=== PATIENT | female | born 1990 | race Caucasian/White ===

== ENCOUNTER 2020-10-14 01:20 | Inpatient (IN) ==
[2020-10-14] MEDS ORDERED: Isovue-370 500 ML BOTTLE IVP ONE ×2 (01:44→03:36)
[2020-10-14 01:49] LABS: Hemoglobin 11.8 g/dL (11.5-15.4); Immature Granulocytes % 0.3 % (0-4); Mean Platelet Volume 13.3 fL (9.4-12.4)
[2020-10-14 01:51] LABS: Basophils % 0.3 %; Eosinophils # 0.1 K/mcL (0.0-0.6); Eosinophils % 1.9 %; Hematocrit 37.2 % (35.3-44.9); Immature Platelets 15.4 % (1.1-6.1); Mean Corpuscular HGB Conc 31.7 g/dL (31.6-35.5); Mean Corpuscular Volume 81.9 fL (83.0-100.0); Monocytes # 0.5 K/mcL (0.0-1.3); Monocytes % 7.9 %; Platelet Count 198 K/mcL (140-400); Red Blood Count 4.54 M/mcL (3.82-4.97); Red Cell Distribution Width 13.2 % (11.5-14.5); Segmented Neutrophils % 59.6 %; White Blood Count 6.7 K/mcL (4.3-11.1)
[2020-10-14 01:57] LABS: INR 1.1; Prothrombin Time 13.1 Seconds (9.4-12.1)
[2020-10-14 02:05] LABS: Alanine Aminotransferase 303 Units/L (7-52); Albumin 4.3 g/dL (3.5-5.7); Albumin/Globulin Ratio 1.2 (1.1-2.2); Alkaline Phosphatase 171 Units/L (34-104); Aspartate Amino Transferase 402 Units/L (13-39); BUN/Creatinine Ratio 17 (6-26); Bilirubin,Direct 1.1 mg/dL (0.0-0.2); Bilirubin,Indirect 0.6 mg/dL (0.0-1.0); Bilirubin,Total 1.7 mg/dL (0.3-1.0); Blood Urea Nitrogen 12 mg/dL (6-20); Calcium 9.5 mg/dL (8.6-10.3); Carbon Dioxide 27 mEq/L (23-29); Chloride 104 mEq/L (98-107); Globulin 3.5 g/dL (2.4-3.5); Glucose 114 mg/dL (70-105); Lipase 18 Units/L (11-82); Osmolality,Calculated 289 (280-300); Potassium 3.7 mEq/L (3.5-5.1); Sodium 139 mEq/L (136-145); Total Protein 7.8 g/dL (6.4-8.9); Troponin I < 0.03 ng/mL (< 0.04); eGFR For African Americans > 60 (> 60); eGFR For Non-African Americans > 60 (> 60)
[2020-10-14] MEDS ORDERED: 0.9 % Sodium Chloride 1,000 ML IVC ONE (03:36)
[2020-10-14] MEDS ORDERED: Morphine Sulfate 2 MG/ML SYRINGE IVP ONE (03:47)
[2020-10-14] MEDS ORDERED: Famotidine 20 MG/2 ML VIAL IVP ONE (03:47)
[2020-10-14] MEDS ORDERED: Ondansetron 4 MG/2 ML VIAL IVP ONE (03:47)
[2020-10-14] MEDS ORDERED: Isovue-300 50ML VIAL ONE (10:01)
[2020-10-14] MEDS ORDERED: Bupivacaine 0.5%-Epi 1:200,000 50 ML VIAL ONE (10:01)
[2020-10-14] MEDS ORDERED: *HR* Propofol 200 MG/20 ML VIAL IVP ONE (10:17)
[2020-10-14] MEDS ORDERED: *HR* Midazolam HCl 2 MG/2 ML VIAL ONE (10:17)
[2020-10-14] MEDS ORDERED: *HR* FentaNYL (PF) 100 MCG/2 ML VIAL ONE (10:17)
[2020-10-14] MEDS ORDERED: Lidocaine HCL 4 ML Topical Solution (Laryng-O-Jet Kit Sterile Pak) TP ONE (10:18)
[2020-10-14] MEDS ORDERED: *HR* Succinylcholine 200 MG/10 ML VIAL IVP ONE (10:18)
[2020-10-14] MEDS ORDERED: Ondansetron 4 MG/2 ML VIAL ONE (10:18)
[2020-10-14] MEDS ORDERED: Lidocaine -MPF 2% 2 ML VIAL ONE (10:18)
[2020-10-14] MEDS ORDERED: *HR* Rocuronium Bromide 50 MG/5 ML VIAL ONE (10:18)
[2020-10-14] MEDS ORDERED: Ketorolac 30 MG/ML VIAL ONE (10:21)
[2020-10-14] MEDS ORDERED: Acetaminophen IV 1,000 MG/100 ML BAG IVPB ONE (10:24)
[2020-10-14] MEDS ORDERED: ceFAZolin 2,000 MG in Water for inj. (sterile) 20 ML IVP STA (10:40)
[2020-10-14] MEDS ORDERED: *HR* HYDROcodone/Acet 5/325 mg TABLET PO PRN (11:13)
[2020-10-14] MEDS ORDERED: *HR* HYDROmorphone PF 0.5 MG/0.5 ML SYRINGE IVP PRN (11:13)
[2020-10-14] MEDS ORDERED: Ringers Solution, Lactated 1,000 ML IVC SCH (11:15)
[2020-10-14] MEDS: *HR* Heparin 5,000 UNIT/ML VIAL SQ SCH ×3 (18:50→21:53)
[2020-10-14] MEDS: Acetaminophen IV 1,000 MG/100 ML BAG IVPB SCH ×2 (18:50→23:13)
[2020-10-14] MEDS: 0.9 % Sodium Chloride 1,000 ML IVC SCH (18:51)
[2020-10-14] MEDS: Ampicillin/Sulbactam 3,000 MG in 0.9 % Sodium Chloride Mini Bag 100 ML IVPB SCH ×2 (18:51→23:31)
[2020-10-14] MEDS: Ondansetron 4 MG/2 ML VIAL IVP PRN (23:14)
[2020-10-15] MEDS: *HR* Heparin 5,000 UNIT/ML VIAL SQ SCH ×3 (05:01→22:30)
[2020-10-15] MEDS: Acetaminophen IV 1,000 MG/100 ML BAG IVPB SCH ×4 (05:01→22:30)
[2020-10-15] MEDS: Ampicillin/Sulbactam 3,000 MG in 0.9 % Sodium Chloride Mini Bag 100 ML IVPB SCH ×4 (05:02→22:31)
[2020-10-15 05:04] LABS: Immature Granulocytes % 0.3 % (0-4); Red Cell Distribution Width 13.5 % (11.5-14.5)
[2020-10-15 05:06] LABS: Basophils % 0.3 %; Eosinophils # 0.2 K/mcL (0.0-0.6); Eosinophils % 3.5 %; Hematocrit 30.8 % (35.3-44.9); Hemoglobin 9.8 g/dL (11.5-15.4); Immature Platelets 15.4 % (1.1-6.1); Lymphocytes # 1.4 K/mcL (0.6-4.6); Lymphocytes % 22.9 %; Mean Corpuscular HGB Conc 31.8 g/dL (31.6-35.5); Mean Corpuscular Hemoglobin 26.6 pg (28.0-33.3); Mean Corpuscular Volume 83.7 fL (83.0-100.0); Mean Platelet Volume 13.8 fL (9.4-12.4); Monocytes # 0.5 K/mcL (0.0-1.3); Monocytes % 7.6 %; Neutrophils # 3.9 K/mcL (1.6-8.9); Platelet Count 145 K/mcL (140-400); Red Blood Count 3.68 M/mcL (3.82-4.97); Segmented Neutrophils % 65.4 %; White Blood Count 5.9 K/mcL (4.3-11.1)
[2020-10-15 05:12] LABS: INR 1.3; Prothrombin Time 14.6 Seconds (9.4-12.1)
[2020-10-15 05:22] LABS: Alanine Aminotransferase 283 Units/L (7-52); Albumin 3.5 g/dL (3.5-5.7); Albumin/Globulin Ratio 1.4 (1.1-2.2); Alkaline Phosphatase 180 Units/L (34-104); Aspartate Amino Transferase 199 Units/L (13-39); BUN/Creatinine Ratio 16 (6-26); Bilirubin,Total 2.4 mg/dL (0.3-1.0); Blood Urea Nitrogen 9 mg/dL (6-20); Calcium 8.5 mg/dL (8.6-10.3); Carbon Dioxide 25 mEq/L (23-29); Chloride 108 mEq/L (98-107); Globulin 2.5 g/dL (2.4-3.5); Glucose 92 mg/dL (70-105); Osmolality,Calculated 288 (280-300); Potassium 3.7 mEq/L (3.5-5.1); Sodium 140 mEq/L (136-145); eGFR For African Americans > 60 (> 60); eGFR For Non-African Americans > 60 (> 60)
[2020-10-15] MEDS: 0.9 % Sodium Chloride 1,000 ML IVC SCH ×3 (07:18→18:37)
[2020-10-15] MEDS: Ondansetron 4 MG/2 ML VIAL IVP PRN ×2 (09:24→20:16)
[2020-10-15] MEDS ORDERED: *HR* HYDROmorphone (PF) 1 MG/ML SYRINGE IVP PRN (09:43)
[2020-10-15] MEDS ORDERED: *HR* Midazolam HCl 2 MG/2 ML VIAL ONE (11:55)
[2020-10-15] MEDS ORDERED: *HR* Propofol 200 MG/20 ML VIAL IVP ONE (11:55)
[2020-10-15] MEDS ORDERED: *HR* FentaNYL (PF) 100 MCG/2 ML VIAL ONE (11:55)
[2020-10-15] MEDS ORDERED: *HR* Succinylcholine 200 MG/10 ML VIAL IVP ONE (11:56)
[2020-10-15] MEDS ORDERED: Ondansetron 4 MG/2 ML VIAL ONE (11:56)
[2020-10-15] MEDS ORDERED: Lidocaine -MPF 2% 2 ML VIAL ONE (11:56)
[2020-10-15] MEDS ORDERED: Ketorolac 30 MG/ML VIAL IVP PRN (12:41)
[2020-10-15] MEDS ORDERED: *HR* OxyCODONE Immed Rel 5 MG TABLET PO PRN (12:41)
[2020-10-15] MEDS ORDERED: Ondansetron 4 MG/2 ML VIAL IVP PRN (12:41)
[2020-10-15] MEDS ORDERED: Ringers Solution, Lactated 1,000 ML IVC SCH (12:45)
[2020-10-15] MEDS ORDERED: Indomethacin 50 MG SUPP.RECT RC ONE (13:46)
[2020-10-16] MEDS: 0.9 % Sodium Chloride 1,000 ML IVC SCH (03:05)
[2020-10-16] MEDS: Acetaminophen IV 1,000 MG/100 ML BAG IVPB SCH (05:34)
[2020-10-16] MEDS: Ampicillin/Sulbactam 3,000 MG in 0.9 % Sodium Chloride Mini Bag 100 ML IVPB SCH (05:34)
[2020-10-16] MEDS: *HR* Heparin 5,000 UNIT/ML VIAL SQ SCH (05:35)
[2020-10-16] MEDS: Ondansetron 4 MG/2 ML VIAL IVP PRN (05:55)
[2020-10-16 06:09] LABS: Mean Platelet Volume 14.2 fL (9.4-12.4)
[2020-10-16 06:10] LABS: Hematocrit 25.8 % (35.3-44.9); Hemoglobin 8.4 g/dL (11.5-15.4); Immature Platelets 20.4 % (1.1-6.1); Mean Corpuscular HGB Conc 32.6 g/dL (31.6-35.5); Mean Corpuscular Hemoglobin 26.8 pg (28.0-33.3); Mean Corpuscular Volume 82.4 fL (83.0-100.0); Red Blood Count 3.13 M/mcL (3.82-4.97); Red Cell Distribution Width 13.8 % (11.5-14.5); White Blood Count 5.6 K/mcL (4.3-11.1)
[2020-10-16 06:25] LABS: Alanine Aminotransferase 188 Units/L (7-52); Albumin 3.2 g/dL (3.5-5.7); Albumin/Globulin Ratio 1.4 (1.1-2.2); Alkaline Phosphatase 160 Units/L (34-104); Aspartate Amino Transferase 86 Units/L (13-39); BUN/Creatinine Ratio 17 (6-26); Bilirubin,Direct 0.8 mg/dL (0.0-0.2); Bilirubin,Indirect 0.4 mg/dL (0.0-1.0); Bilirubin,Total 1.2 mg/dL (0.3-1.0); Blood Urea Nitrogen 9 mg/dL (6-20); Calcium 8.1 mg/dL (8.6-10.3); Carbon Dioxide 26 mEq/L (23-29); Chloride 107 mEq/L (98-107); Globulin 2.3 g/dL (2.4-3.5); Glucose 94 mg/dL (70-105); Osmolality,Calculated 286 (280-300); Potassium 3.4 mEq/L (3.5-5.1); Sodium 139 mEq/L (136-145); Total Protein 5.5 g/dL (6.4-8.9); eGFR For African Americans > 60 (> 60); eGFR For Non-African Americans > 60 (> 60)
[2020-10-16 07:28] VITALS: BP 131/79
[2020-10-16 07:53] LABS: % Iron Saturation 19 % (15-50); Iron 54 mcg/dL (50-170); Transferrin 198 mg/dL (203-362)
[2020-10-16 08:11] LABS: Ferritin 70 ng/mL (10-120)
== END 2020-10-16 10:47 | disposition home or self-care (01) ==
LOC: 3ANU 01:20 → EMEROOARM 01:20 → SUATTDRO 08:04 → 3BNU 08:06
PROVIDERS: ADMIT Internal Medicine; ATTEND Internal Medicine

== ENCOUNTER 2021-10-04 11:53 | Observation (INO) ==
[2021-10-04 12:37] LABS: Bacteria,Urine Few per hpf (None-Few); Bilirubin,Urine Negative (Negative); Blood,Urine Negative (Negative); Clarity,Urine Clear (Clear); Color,Urine Yellow (Yellow); Glucose,Urine (UA) Normal (Normal); Ketones,Urine Negative (Negative); Leukocyte Esterase,Urine Negative (Negative); Mucus,Urine Few per lpf (None-Few); Nitrite,Urine Negative (Negative); Protein,Urine 50 mg/dL (Neg-Trace); RBC,Urine 0-3 per hpf (0-3); Specific Gravity,Urine > 1.030 (1.010-1.025); Squamous Epithelial Cell,Urine Few per hpf (None-Few); Urobilinogen,Urine Normal (Normal); WBC,Urine 0-3 per hpf (0-3)
[2021-10-04 12:39] LABS: Basophils % 0.6 %; Eosinophils # 0.3 K/mcL (0.0-0.6); Eosinophils % 4.4 %; Hematocrit 37.7 % (35.3-44.9); Hemoglobin 12.2 g/dL (11.5-15.4); Immature Granulocytes % 0.3 % (0-4); Lymphocytes # 2.2 K/mcL (0.6-4.6); Lymphocytes % 32.9 %; Mean Corpuscular HGB Conc 32.4 g/dL (31.6-35.5); Mean Corpuscular Volume 86.5 fL (83.0-100.0); Mean Platelet Volume 13.1 fL (9.4-12.4); Monocytes # 0.5 K/mcL (0.0-1.3); Monocytes % 6.6 %; Neutrophils # 3.8 K/mcL (1.6-8.9); Platelet Count 245 K/mcL (140-400); Red Blood Count 4.36 M/mcL (3.82-4.97); Red Cell Distribution Width 13.4 % (11.5-14.5); Segmented Neutrophils % 55.2 %; White Blood Count 6.8 K/mcL (4.3-11.1)
[2021-10-04 12:44] LABS: Amphetamine Screen,Urine Negative ng/mL (Cutoff=1000); Barbiturate Screen,Urine Negative ng/mL (Cutoff=200); Benzodiazepines Screen,Urine Negative ng/mL (Cutoff=200); Cannabinoid Screen,Urine Positive ng/mL (Cutoff = 50); Cocaine Screen,Urine Negative ng/mL (Cutoff= 300); Opiate Screen,Urine Negative ng/mL (Cutoff=300); Phencyclidine Screen,Urine Negative ng/mL (Cutoff=25)
[2021-10-04] MEDS ORDERED: Nicotine 7 MG PATCH.TD24 TD ONE (12:58)
[2021-10-04 13:05] LABS: Acetaminophen < 10 mcg/mL (10-20); BUN/Creatinine Ratio 14 (6-26); Blood Urea Nitrogen 10 mg/dL (6-20); Carbon Dioxide 27 mEq/L (23-29); Chloride 104 mEq/L (98-107); Ethanol < 10 mg/dL (Less than 10); Glucose 93 mg/dL (70-105); Osmolality,Calculated 285 (280-300); Potassium 3.4 mEq/L (3.5-5.1); Salicylate < 2.5 mg/dL (15.0-30.0); Sodium 138 mEq/L (136-145); eGFR For African Americans > 60 (> 60); eGFR For Non-African Americans > 60 (> 60)
[2021-10-04 16:02] LABS: Influenza A PCR Negative (Negative); Influenza B PCR Negative (Negative); Resp. Syncytial Virus PCR Negative (Negative)
[2021-10-04 16:08] LABS: SARS-CoV-2 by PCR (In House) Positive (Negative)
[2021-10-04] MEDS ORDERED: Naloxone 0.4 MG/ML INJ IVP PRN (16:42)
[2021-10-04 22:39] VITALS: PULSE 81
[2021-10-05 04:57] VITALS: BP 110/73; TEMP 98; O2SAT 98
[2021-10-06] MEDS ORDERED: BuPROPion XL (24 HR) 150 MG TABLET PO SCH (09:00)
== END 2021-10-05 15:11 | disposition home or self-care (01) ==
LOC: 3BNU 11:53 → EMEROOARM 11:53 → SUATTDRO 17:54 → 3BNU 18:58
PROVIDERS: ADMIT Internal Medicine; ATTEND Family Medicine